=== PATIENT | female | born 1930 | race Caucasian/White ===

== ENCOUNTER 2016-06-14 21:46 | Inpatient (IN) | payer MEDICARE, OTHER, MEDICAID ==
[~2016-06-14 21:46] MED LIST: ACETAMINOPHEN325 MG PO; ACTOS PO; ADULT ASPIRIN81 MG; ALTACE5 M4 PO; ANTI-DIARRHEA2 MG PO; AQUAPHOR99 GM; ARTIFICIAL TEAR15 M8 EACH EYE; ASPIR 8181 MG; ASPIRIN EC81 M1 PO; ASPIRIN EC81 MG PO; ASPIRIN81 MG PO; ATORVASTATIN CA20 MG PO; AVANDIA2 MG; AVANDIA4 MG; AVANDIA8 MG; BENICAR; BENICAR HCT 20-1 TAB; BENICAR20 MG; BENICAR40 MG PO; BETHANECHOL CHL10 M1 PO; CALCIUM + VITA1 EACH PO; CALCIUM CITRAT1 EAC7 PO; CEPHALEXIN500 MG PO; CIPRO500 M2 PO; COMBIVENT RESPIM4 G1 IH; COUMADIN1 M1 PO; COUMADIN1 MG PO; COUMADIN2 M1 PO; COUMADIN2.5 MG; COUMADIN2.5 MG PO; FEOSOL1 TAB PO; FERROUSUL325 ( 65 ) PO; FOLIC ACID0.4 MG PO; FUROSEMIDE40 M2 PO; GLIPIZIDE XL10 MG PO; GLIPIZIDE10 MG; GLIPIZIDE5 MG PO; GLUCAGEN1 MG/1 ML IM; GLUCOPHAGE1000 MG; GLUCOPHAGE500 MG; GLUCOPHAGE500 MG PO; GLUCOTROL10 MG; HUMALOG100 U/ML SC; HYDROCODONE/APA1 TAB; IRON1 TAB; IRON325 ( 65 ); K-DUR20 ME1 PO; LANTUS100 U/ML SC; LANTUS100 UNITS/ SC; LASIX40 M1 PO; LASIX40 MG PO; LIPITOR20 MG; LIPITOR20 MG PO; LOPRESSOR25 MG/TA7 PO; METFORMIN HCL500 MG; METFORMIN HCL500 MG PO; METOPROLOL SUCC50 M1 PO; METOPROLOL TAR100 MG PO; MIRALAX17 G2 PO; NITROSTAT0.4 MG/TAB SL; NORCO 5-325 TA1 EACH PO; NOVOLOG100 UNITS/ SC; NYAMYC15 GM TP; NYSTATIN-TRIAMC15 G1 TOP; POTASSIUM CHLO20 ME3 PO; PRAVACHOL80 M1 PO; PRAVACHOL80 MG PO; PRILOSEC OTC20 MG; PRILOSEC20 M1 PO; PRILOSEC20 MG; PRILOSEC20 MG PO; Q-TUSSIN DM SY473 ML PO; SENEXON-S TABL1 EAC1 PO; SENNA PLUS TAB1 EACH PO; SULFAMETHOXAZOL; TESSALON PERLE100 M1 PO; TOPROL XL100 MG; TOPROL XL200 MG PO; TRAMADOL HCL50 M2 PO; TRAMADOL HCL50 MG PO; TYLENOL325 M2 PO; URECHOLINE10 MG PO; VICODIN 5/500 T1 TAB PO; VITAMIN B12500 MCG PO; VITAMIN D-32000 UNI4 PO; VITAMIN D1000 UNI3 PO; VITAMIN D31000 UNIT PO; VITAMIN D50000 UNIT PO; ZOLOFT50 M1 PO; ZOLOFT50 MG PO; [UNRECOGNIZED DRUG - REMARK]; mucinex; toprol
[2016-06-14 22:37] LABS: BASO % 0.1 % (0-2); HGB-HEMOGLOBIN 11.8 gm/dl (12.0-15.5); IMMATURE GRANULOCYTES PERCENT 0.6 % (0-0.3); LYMPH % 3.3 % (20-45); LYMPH ABSOLUTE COUNT 1.1 tho/cmm (0.8-4.5); MCH (MEAN CORPUSCULAR HGB) 22.4 pg (28.0-32.0); MCHC MEAN CORPUSCULAR HGB CONC 30.3 % (32.0-36.0); MCV (MEAN CELL VOLUME) 74.1 fl (82.0-96.0); MEAN PLATELET VOLUME 9.8 cmc (9.4-12.4); MONO % 6.1 % (0-12); MONOCYTE ABSOLUTE COUNT 2.1 tho/cmm (0.0-1.2); NEUTROPHIL ABSOLUTE COUNT 30.3 tho/cmm (1.6-8.0); NEUTROPHIL-AUTOMATED 30.3 tho/cmm (1.6-8.0); NEUTROPHILS % 89.9 % (40-80); PLATELET COUNT 278 tho/cmm (150-450); RED BLOOD COUNT 5.26 mil/cmm (4.00-5.20); RED CELL DISTRIBUTION WIDTH 25.1 % (12.4-16.4); WHITE BLOOD COUNT 33.7 tho/cmm (4.0-10.0)
[2016-06-14 22:42] LABS: INR 3.5 INR (0.9-1.1); PROTHROMBIN TIME 41.8 SECONDS (9.0-13.6)
[2016-06-14 22:52] LABS: ANION GAP 14 mmol/L (0-20); BLOOD UREA NITROGEN 38 mg/dl (6-24); CALCIUM 9.4 mg/dl (8.5-10.5); CARBON DIOXIDE-VENOUS 28 mmol/L (22-32); CHLORIDE 96 mmol/l (96-110); CREATININE 1.58 mg/dl (0.50-1.10); GLUCOSE 281 mg/dL (70-110); POTASSIUM 4.8 mmol/L (3.7-5.1); SODIUM 133 mmol/L (135-145); eGFR VALUE FOR BLACK 34 mL/Min
[2016-06-14 22:59] LABS: URINE APPEARANCE CLEAR; URINE BILIRUBIN NEGATIVE (NEG); URINE BLOOD NEGATIVE (NEG); URINE COLOR YELLOW; URINE GLUCOSE (UA) NEGATIVE (NEG); URINE KETONE NEGATIVE (NEG); URINE LEUKOCYTE ESTERASE NEGATIVE (NEG); URINE NITRITE NEGATIVE (NEG); URINE PROTEIN SMALL (NEG); URINE SPECIFIC GRAVITY 1.015 (1.003-1.030)
[2016-06-14] MEDS ORDERED: [UNRECOGNIZED DRUG - OTHER] TOP (23:12)
[2016-06-14] MEDS ORDERED: LIQUITEARS15 M1 OP (23:15)
[2016-06-14 23:17] LABS: URINE MUCUS 1+
[2016-06-14 23:18] LABS: URINE RBC 0-2 /[HPF] (0-5); URINE WBC 0-2 /[HPF] (0-5)
[2016-06-14] MEDS ORDERED: IPRAT-ALBUT 0.5-3 ML INH (23:20)
[2016-06-15] MEDS ORDERED: GLUCAGON EMERGEN1 MG IM (00:55)
[2016-06-15] MEDS ORDERED: HYDROCODON-ACE1 EA16 PO (00:56)
[2016-06-15] MEDS ORDERED: ALTACE5 M4 PO (00:57)
[2016-06-15] MEDS ORDERED: ULTRAM50 M1 PO (00:58)
[2016-06-15] MEDS ORDERED: SENEXON-S TABL1 EAC1 PO (00:58)
[2016-06-15] MEDS ORDERED: TRIAMCINOLONE A80 G1 TP (01:00)
[2016-06-15] MEDS ORDERED: VITAMIN D31000 UNI3 PO (01:00)
[2016-06-15] MEDS ORDERED: COUMADIN1 M1 PO ×2 (01:01→01:02)
[2016-06-15] MEDS ORDERED: OMEPRAZOLE20 M4 PO (01:02)
[2016-06-15] MEDS ORDERED: POTASSIUM CHLO20 ME3 PO (01:09)
[2016-06-15] MEDS ORDERED: LANTUS SOL100 UNIT/1 SC (01:10)
[2016-06-15] MEDS ORDERED: PRAVASTATIN SOD80 M1 PO (01:10)
[2016-06-15] MEDS ORDERED: TOPROL XL50 M1 PO (01:11)
[2016-06-15] MEDS ORDERED: FEOSOL325 M1 PO (01:12)
[2016-06-15] MEDS ORDERED: LASIX40 M1 PO (01:13)
[2016-06-15 04:09] LABS: ABG CO2 ARTERIAL 29 mmol/L (21-27); ARTERIAL BLD GAS O2 SATURATION 93 % (95-98); ARTERIAL BLOOD GAS PCO2 46 mmHg (32-45); ARTERIAL PO2 69 mmHg (70-100); BICARBONATE 28 mmol/L (21-28); BLOOD GAS BASE EXCESS 3 mM/L (-/+3)
[2016-06-15 04:21] LABS: HCT-HEMATOCRIT 37.7 % (34.0-49.0); HGB-HEMOGLOBIN 11.3 gm/dl (12.0-15.5); MCH (MEAN CORPUSCULAR HGB) 22.2 pg (28.0-32.0); MCV (MEAN CELL VOLUME) 73.9 fl (82.0-96.0); MEAN PLATELET VOLUME 9.3 cmc (9.4-12.4); NEUTROPHIL-AUTOMATED 31.6 tho/cmm (1.6-8.0); PLATELET COUNT 282 tho/cmm (150-450); RED CELL DISTRIBUTION WIDTH 24.9 % (12.4-16.4)
[2016-06-15 04:33] LABS: ANION GAP 11 mmol/L (0-20); BLOOD UREA NITROGEN 38 mg/dl (6-24); CARBON DIOXIDE-VENOUS 30 mmol/L (22-32); CHLORIDE 96 mmol/l (96-110); CREATININE 1.54 mg/dl (0.50-1.10); GLUCOSE 199 mg/dL (70-110); POTASSIUM 4.3 mmol/L (3.7-5.1); SODIUM 133 mmol/L (135-145); eGFR VALUE FOR BLACK 35 mL/Min
[2016-06-15 05:05] LABS: INR 3.7 INR (0.9-1.1); PROTHROMBIN TIME 44.1 SECONDS (9.0-13.6)
[2016-06-15 05:08] LABS: WHITE BLOOD COUNT 35.4 tho/cmm (4.0-10.0)
[2016-06-15 05:23] LABS: ABG CO2 ARTERIAL 28 mmol/L (21-27); ARTERIAL BLD GAS O2 SATURATION 96 % (95-98); ARTERIAL BLOOD GAS PCO2 41 mmHg (32-45); ARTERIAL PO2 79 mmHg (70-100); BICARBONATE 26 mmol/L (21-28); BLOOD GAS BASE EXCESS 2 mM/L (-/+3); PH 7.42 Units (7.35-7.45)
[2016-06-15 07:35] LABS: BAND % 22 % (0-20); BAND ABSOLUTE COUNT 7.8 tho/cmm (0-2.0)
[2016-06-15 13:51] LABS: ABG CO2 ARTERIAL 28 mmol/L (21-27); ARTERIAL BLD GAS O2 SATURATION 97 % (95-98); ARTERIAL BLOOD GAS PCO2 50 mmHg (32-45); ARTERIAL PO2 101 mmHg (70-100); BICARBONATE 27 mmol/L (21-28); BLOOD GAS BASE EXCESS 1 mM/L (-/+3); PH 7.35 Units (7.35-7.45)
[2016-06-15 14:00] LABS: HCT-HEMATOCRIT 35.7 % (34.0-49.0); HGB-HEMOGLOBIN 10.6 gm/dl (12.0-15.5); MCH (MEAN CORPUSCULAR HGB) 22.1 pg (28.0-32.0); MCHC MEAN CORPUSCULAR HGB CONC 29.7 % (32.0-36.0); MCV (MEAN CELL VOLUME) 74.4 fl (82.0-96.0); MEAN PLATELET VOLUME 9.4 cmc (9.4-12.4); NEUTROPHIL-AUTOMATED 29.3 tho/cmm (1.6-8.0); PLATELET COUNT 262 tho/cmm (150-450); WHITE BLOOD COUNT 33.1 tho/cmm (4.0-10.0)
[2016-06-15 14:07] LABS: RED CELL DISTRIBUTION WIDTH 25.1 % (12.4-16.4)
[2016-06-15 14:20] LABS: ALB/GLOB RATIO 0.7 (0.8-2.0); ALKALINE PHOSPHATASE 108 U/L (33-138); ALT/SGPT 17 U/L (12-78); ANION GAP 13 mmol/L (0-20); AST/SGOT 15 U/L (10-40); BILIRUBIN,TOTAL 1.2 mg/dl (0-1.5); BLOOD UREA NITROGEN 44 mg/dl (6-24); CALCIUM 8.8 mg/dl (8.5-10.5); CARBON DIOXIDE-VENOUS 29 mmol/L (22-32); CHLORIDE 97 mmol/l (96-110); GLUCOSE 154 mg/dL (70-110); POTASSIUM 4.6 mmol/L (3.7-5.1); SODIUM 134 mmol/L (135-145); eGFR VALUE FOR BLACK 24 mL/Min
[2016-06-15 14:21] LABS: CREATININE 2.07 mg/dl (0.50-1.10)
[2016-06-15 14:22] LABS: AMYLASE 18 U/L (20-90); LIPASE 100 U/L (73-393)
[2016-06-15 14:27] LABS: BAND % 23 % (0-20); BAND ABSOLUTE COUNT 7.6 tho/cmm (0-2.0)
[2016-06-15 17:56] LABS: URINE PRT/CR RATIO 0.26 Ratio (0.0-0.20); URINE TOTAL PROTEIN-RANDOM 36.3 mg/dl (<11.8)
[2016-06-16 05:08] LABS: HCT-HEMATOCRIT 32.6 % (34.0-49.0); HGB-HEMOGLOBIN 9.6 gm/dl (12.0-15.5); IMMATURE GRANULOCYTES ABSOLUTE 0.05 tho/cmm (0-0.03); IMMATURE GRANULOCYTES PERCENT 0.2 % (0-0.3); LYMPH % 2.5 % (20-45); LYMPH ABSOLUTE COUNT 0.5 tho/cmm (0.8-4.5); MCH (MEAN CORPUSCULAR HGB) 21.8 pg (28.0-32.0); MCHC MEAN CORPUSCULAR HGB CONC 29.4 % (32.0-36.0); MCV (MEAN CELL VOLUME) 73.9 fl (82.0-96.0); MEAN PLATELET VOLUME 9.8 cmc (9.4-12.4); MONO % 3.7 % (0-12); MONOCYTE ABSOLUTE COUNT 0.8 tho/cmm (0.0-1.2); NEUTROPHIL ABSOLUTE COUNT 19.5 tho/cmm (1.6-8.0); NEUTROPHIL-AUTOMATED 19.5 tho/cmm (1.6-8.0); NEUTROPHILS % 93.6 % (40-80); PLATELET COUNT 246 tho/cmm (150-450); RED BLOOD COUNT 4.41 mil/cmm (4.00-5.20); RED CELL DISTRIBUTION WIDTH 24.8 % (12.4-16.4)
[2016-06-16 05:28] LABS: ALB/GLOB RATIO 0.6 (0.8-2.0); ALBUMIN 2.5 g/dl (3.5-5.0); ALKALINE PHOSPHATASE 103 U/L (33-138); ALT/SGPT 17 U/L (12-78); ANION GAP 13 mmol/L (0-20); AST/SGOT 20 U/L (10-40); BILIRUBIN,TOTAL 0.7 mg/dl (0-1.5); BLOOD UREA NITROGEN 51 mg/dl (6-24); CALCIUM 8.6 mg/dl (8.5-10.5); CARBON DIOXIDE-VENOUS 28 mmol/L (22-32); CHLORIDE 99 mmol/l (96-110); CREATININE 1.98 mg/dl (0.50-1.10); GLUCOSE 178 mg/dL (70-110); MAGNESIUM 2.3 mg/dl (1.3-2.6); PHOSPHOROUS 5.2 mg/dl (2.5-4.9); POTASSIUM 4.7 mmol/L (3.7-5.1); eGFR VALUE FOR BLACK 26 mL/Min
[2016-06-16 06:01] LABS: HGB-HEMOGLOBIN 9.8 gm/dl (12.0-15.5); MCH (MEAN CORPUSCULAR HGB) 22.5 pg (28.0-32.0); MCHC MEAN CORPUSCULAR HGB CONC 30.6 % (32.0-36.0); MCV (MEAN CELL VOLUME) 73.4 fl (82.0-96.0); MEAN PLATELET VOLUME 8.7 cmc (9.4-12.4); NEUTROPHIL-AUTOMATED 18.4 tho/cmm (1.6-8.0); PLATELET COUNT 212 tho/cmm (150-450); RED BLOOD COUNT 4.36 mil/cmm (4.00-5.20); RED CELL DISTRIBUTION WIDTH 24.7 % (12.4-16.4)
[2016-06-16 06:16] LABS: ALB/GLOB RATIO 0.6 (0.8-2.0); ALBUMIN 2.6 g/dl (3.5-5.0); ALKALINE PHOSPHATASE 88 U/L (33-138); ALT/SGPT 17 U/L (12-78); ANION GAP 15 mmol/L (0-20); AST/SGOT 14 U/L (10-40); BILIRUBIN,TOTAL 0.8 mg/dl (0-1.5); BLOOD UREA NITROGEN 50 mg/dl (6-24); CALCIUM 8.8 mg/dl (8.5-10.5); CARBON DIOXIDE-VENOUS 27 mmol/L (22-32); CHLORIDE 99 mmol/l (96-110); CREATININE 1.93 mg/dl (0.50-1.10); GLUCOSE 175 mg/dL (70-110); MAGNESIUM 2.3 mg/dl (1.3-2.6); PHOSPHOROUS 5.2 mg/dl (2.5-4.9); POTASSIUM 4.4 mmol/L (3.7-5.1); SODIUM 137 mmol/L (135-145); eGFR VALUE FOR BLACK 26 mL/Min
[2016-06-16 06:20] LABS: INR 4.6 INR (0.9-1.1); PROTHROMBIN TIME 56.3 SECONDS (9.0-13.6)
[2016-06-16 06:23] LABS: INR 4.6 INR (0.9-1.1); PROTHROMBIN TIME 55.7 SECONDS (9.0-13.6)
[2016-06-16 06:33] LABS: SODIUM 135 mmol/L (135-145)
[2016-06-16 06:38] LABS: WHITE BLOOD COUNT 19.7 tho/cmm (4.0-10.0)
[2016-06-16 06:38] LABS: WHITE BLOOD COUNT 20.9 tho/cmm (4.0-10.0)
[2016-06-17 05:14] LABS: HCT-HEMATOCRIT 32.4 % (34.0-49.0); HGB-HEMOGLOBIN 9.7 gm/dl (12.0-15.5); IMMATURE GRANULOCYTES ABSOLUTE 0.06 tho/cmm (0-0.03); IMMATURE GRANULOCYTES PERCENT 0.4 % (0-0.3); LYMPH ABSOLUTE COUNT 0.5 tho/cmm (0.8-4.5); MCH (MEAN CORPUSCULAR HGB) 21.8 pg (28.0-32.0); MCHC MEAN CORPUSCULAR HGB CONC 29.9 % (32.0-36.0); MEAN PLATELET VOLUME 9.3 cmc (9.4-12.4); MONO % 5.6 % (0-12); MONOCYTE ABSOLUTE COUNT 0.9 tho/cmm (0.0-1.2); PLATELET COUNT 278 tho/cmm (150-450); RED BLOOD COUNT 4.44 mil/cmm (4.00-5.20); RED CELL DISTRIBUTION WIDTH 24.9 % (12.4-16.4); WHITE BLOOD COUNT 16.4 tho/cmm (4.0-10.0)
[2016-06-17 05:17] LABS: PROTHROMBIN TIME 65.1 SECONDS (9.0-13.6)
[2016-06-17 05:26] LABS: INR 5.3 INR (0.9-1.1)
[2016-06-17 05:36] LABS: ALBUMIN 2.3 g/dl (3.5-5.0); ANION GAP 13 mmol/L (0-20); BLOOD UREA NITROGEN 49 mg/dl (6-24); CALCIUM 8.7 mg/dl (8.5-10.5); CARBON DIOXIDE-VENOUS 29 mmol/L (22-32); CHLORIDE 103 mmol/l (96-110); CREATININE 1.65 mg/dl (0.50-1.10); GLUCOSE 158 mg/dL (70-110); PHOSPHOROUS 4.3 mg/dl (2.5-4.9); POTASSIUM 3.7 mmol/L (3.7-5.1); SODIUM 141 mmol/L (135-145); eGFR VALUE FOR BLACK 32 mL/Min
[2016-06-18 05:50] LABS: INR 7.9 INR (0.9-1.1)
[2016-06-18 05:51] LABS: ANION GAP 13 mmol/L (0-20); BLOOD UREA NITROGEN 49 mg/dl (6-24); CALCIUM 8.9 mg/dl (8.5-10.5); CARBON DIOXIDE-VENOUS 29 mmol/L (22-32); CHLORIDE 104 mmol/l (96-110); GLUCOSE 168 mg/dL (70-110); POTASSIUM 3.8 mmol/L (3.7-5.1); SODIUM 142 mmol/L (135-145); eGFR VALUE FOR BLACK 42 mL/Min
[2016-06-18 10:58] LABS: ANION GAP 13 mmol/L (0-20); BLOOD UREA NITROGEN 52 mg/dl (6-24); CARBON DIOXIDE-VENOUS 27 mmol/L (22-32); CHLORIDE 106 mmol/l (96-110); CREATININE 1.42 mg/dl (0.50-1.10); POTASSIUM 4.3 mmol/L (3.7-5.1); SODIUM 142 mmol/L (135-145); eGFR VALUE FOR BLACK 38 mL/Min
[2016-06-18 11:07] LABS: GLUCOSE 330 mg/dL (70-110)
[2016-06-19 06:34] LABS: BASO % 0.1 % (0-2); HCT-HEMATOCRIT 32.7 % (34.0-49.0); HGB-HEMOGLOBIN 9.7 gm/dl (12.0-15.5); IMMATURE GRANULOCYTES ABSOLUTE 0.04 tho/cmm (0-0.03); IMMATURE GRANULOCYTES PERCENT 0.4 % (0-0.3); LYMPH ABSOLUTE COUNT 0.6 tho/cmm (0.8-4.5); MCH (MEAN CORPUSCULAR HGB) 21.7 pg (28.0-32.0); MCHC MEAN CORPUSCULAR HGB CONC 29.7 % (32.0-36.0); MCV (MEAN CELL VOLUME) 73.3 fl (82.0-96.0); MEAN PLATELET VOLUME 9.2 cmc (9.4-12.4); MONO % 8.5 % (0-12); MONOCYTE ABSOLUTE COUNT 0.8 tho/cmm (0.0-1.2); NEUTROPHIL ABSOLUTE COUNT 7.9 tho/cmm (1.6-8.0); NEUTROPHIL-AUTOMATED 7.9 tho/cmm (1.6-8.0); PLATELET COUNT 258 tho/cmm (150-450); RED BLOOD COUNT 4.46 mil/cmm (4.00-5.20); WHITE BLOOD COUNT 9.3 tho/cmm (4.0-10.0)
[2016-06-19 06:39] LABS: RED CELL DISTRIBUTION WIDTH 25.1 % (12.4-16.4)
[2016-06-19 06:59] LABS: BLOOD UREA NITROGEN 50 mg/dl (6-24); CARBON DIOXIDE-VENOUS 32 mmol/L (22-32); CREATININE 1.19 mg/dl (0.50-1.10); PHOSPHOROUS 3.8 mg/dl (2.5-4.9); eGFR VALUE FOR BLACK 47 mL/Min
[2016-06-19 07:04] LABS: ANION GAP 11 mmol/L (0-20); CHLORIDE 106 mmol/l (96-110); POTASSIUM 3.5 mmol/L (3.7-5.1); SODIUM 145 mmol/L (135-145)
[2016-06-19 07:07] LABS: GLUCOSE 164 mg/dL (70-110)
[2016-06-19 10:22] LABS: INR 1.4 INR (0.9-1.1)
[2016-06-19 10:22] LABS: INR 1.3 INR (0.9-1.1); PROTHROMBIN TIME 15.3 SECONDS (9.0-13.6)
[2016-06-20 06:04] LABS: ANION GAP 14 mmol/L (0-20); BLOOD UREA NITROGEN 47 mg/dl (6-24); CARBON DIOXIDE-VENOUS 26 mmol/L (22-32); CHLORIDE 104 mmol/l (96-110); CREATININE 1.15 mg/dl (0.50-1.10); GLUCOSE 187 mg/dL (70-110); SODIUM 140 mmol/L (135-145); eGFR VALUE FOR BLACK 49 mL/Min
[2016-06-20 06:07] LABS: POTASSIUM 4.2 mmol/L (3.7-5.1)
[2016-06-20 09:54] LABS: INR 1.3 INR (0.9-1.1); PROTHROMBIN TIME 14.9 SECONDS (9.0-13.6)
[2016-06-21 05:21] LABS: BASO % 0.1 % (0-2); EOS % 0.1 % (0-7); HCT-HEMATOCRIT 36.5 % (34.0-49.0); HGB-HEMOGLOBIN 10.8 gm/dl (12.0-15.5); IMMATURE GRANULOCYTES ABSOLUTE 0.16 tho/cmm (0-0.03); IMMATURE GRANULOCYTES PERCENT 0.9 % (0-0.3); LYMPH % 5.7 % (20-45); MCH (MEAN CORPUSCULAR HGB) 21.7 pg (28.0-32.0); MCHC MEAN CORPUSCULAR HGB CONC 29.6 % (32.0-36.0); MCV (MEAN CELL VOLUME) 73.4 fl (82.0-96.0); MEAN PLATELET VOLUME 9.4 cmc (9.4-12.4); MONO % 8.2 % (0-12); MONOCYTE ABSOLUTE COUNT 1.5 tho/cmm (0.0-1.2); NEUTROPHIL ABSOLUTE COUNT 15.1 tho/cmm (1.6-8.0); NEUTROPHIL-AUTOMATED 15.1 tho/cmm (1.6-8.0); PLATELET COUNT 346 tho/cmm (150-450); RED BLOOD COUNT 4.97 mil/cmm (4.00-5.20)
[2016-06-21 05:28] LABS: INR 1.6 INR (0.9-1.1)
[2016-06-21 05:36] LABS: ANION GAP 9 mmol/L (0-20); BLOOD UREA NITROGEN 46 mg/dl (6-24); CALCIUM 9.3 mg/dl (8.5-10.5); CARBON DIOXIDE-VENOUS 34 mmol/L (22-32); CHLORIDE 105 mmol/l (96-110); CREATININE 1.15 mg/dl (0.50-1.10); POTASSIUM 3.9 mmol/L (3.7-5.1); SODIUM 144 mmol/L (135-145); eGFR VALUE FOR BLACK 49 mL/Min
[2016-06-21 05:47] LABS: RED CELL DISTRIBUTION WIDTH 25.2 % (12.4-16.4); WHITE BLOOD COUNT 17.8 tho/cmm (4.0-10.0)
[2016-06-21 05:56] LABS: GLUCOSE 77 mg/dL (70-110)
[2016-06-21 05:57] LABS: PROTHROMBIN TIME 19.1 SECONDS (9.0-13.6)
--- NOTE | 2016-06-23 12:34 | NUR ---
SPOKE WITH PT AND FAMILY. FAMILY DECIDED ON THE [place] PRIVATE PAY BED WITH TRANSITIOH TO THE MEDICAID BED IF TI OPENS UP. REQUEST [facility]. CALLED AND FAXED THE [place]. SPOKE WITH CAMI KELLEY WITH HOSPICE. SHE WILL COORDINATE THE AMBULANCE AND GET MEDS TO THE [place]. SUPPORT GIVEN.
[2016-06-23] MEDS ORDERED: ATROPINE S0.4 MG/1 M SL (14:25)
[2016-06-23] MEDS ORDERED: MORPHINE PO/SL (14:30)
[2016-06-23] MEDS ORDERED: TYLENOL325 M2 PO (14:33)
[2016-06-23] MEDS ORDERED: ATIVAN0.5 M1 PO/SL (14:35)
[2016-06-23] MEDS ORDERED: DULCOLAX10 MG PR (14:36)
[2016-06-23] MEDS ORDERED: MIRALAX17 G2 PO (14:37)
[2016-06-23] MEDS ORDERED: PREDNISONE10 M1 PO (14:40)
[2016-06-23] MEDS ORDERED: TRIAMCINOLONE A80 G1 TOP (14:43)
== END 2016-06-23 15:45 | disposition hospice, inpatient (51) | DRG 190 ==
LOC: EDMED 21:46 → EMR2 06-15 02:52 → 5WE 06-15 03:13 → CCU 06-15 04:45 → PCUB 06-18 19:18
PROVIDERS: Emergency Medicine; Family Medicine; Internal Medicine Critical Care Medicine; Internal Medicine Nephrology; Internal Medicine Pulmonary Disease; ADMIT Specialist
PROC: 05HB33Z Insertion of Infusion Device into Right Basilic Vein, Percutaneous Approach (ICD-10-PCS; principal; 2016-06-15)
PROC: 5A09457 Assistance with Respiratory Ventilation, 24-96 Consecutive Hours, Continuous Positive Airway Pressure (ICD-10-PCS; 2016-06-15)
DX: J44.0 Chronic obstructive pulmonary disease with (acute) lower respiratory infection (principal); J15.6 Pneumonia due to other Gram-negative bacteria; J96.01 Acute respiratory failure with hypoxia; N17.9 Acute kidney failure, unspecified; I50.33 Acute on chronic diastolic (congestive) heart failure; K56.7 Ileus, unspecified; I13.0 Hypertensive heart and chronic kidney disease with heart failure and stage 1 through stage 4 chronic kidney disease, or unspecified chronic kidney disease; J93.9 Pneumothorax, unspecified; E11.22 Type 2 diabetes mellitus with diabetic chronic kidney disease; E11.65 Type 2 diabetes mellitus with hyperglycemia; Z68.41 Body mass index [BMI] 40.0-44.9, adult; I48.0 Paroxysmal atrial fibrillation; N18.3 Chronic kidney disease, stage 3 (moderate); I25.10 Atherosclerotic heart disease of native coronary artery without angina pectoris; K21.9 Gastro-esophageal reflux disease without esophagitis; E78.5 Hyperlipidemia, unspecified; Z66 Do not resuscitate; Z51.5 Encounter for palliative care; I34.0 Nonrheumatic mitral (valve) insufficiency; D63.8 Anemia in other chronic diseases classified elsewhere; E87.6 Hypokalemia; Z79.01 Long term (current) use of anticoagulants; Z87.891 Personal history of nicotine dependence; Z79.4 Long term (current) use of insulin; Z95.0 Presence of cardiac pacemaker; Z87.11 Personal history of peptic ulcer disease; Z95.1 Presence of aortocoronary bypass graft; Z85.828 Personal history of other malignant neoplasm of skin; E66.01 Morbid (severe) obesity due to excess calories
CPT/HCPCS: C1729; C1751; C9113; J0360; J1815; J1940; J1956; J2270; J2543; J2920; J2930; J3010; J3370; J3430; J3480; J7030; J7050; J7512; P9045; P9612